=== PATIENT | male | born 1945 | race Caucasian/White ===

== ENCOUNTER 2018-03-23 08:25 | Day surgery (SDC) | payer OTHER, BC ==
[2018-03-23] MEDS ORDERED: NA CHLORIDE 0.9% 1,000 ML ONE (08:51)
[2018-03-23] MEDS ORDERED: PROPOFOL 200 MG/20 ML VIAL IV ONE (09:49)
[2018-03-23] MEDS ORDERED: FENTANYL CITR 100 MCG/2 ML ONE (09:49)
[2018-03-23] MEDS ORDERED: ONDANSETRON 4 MG/2 ML VIAL ONE (09:50)
[2018-03-23] MEDS ORDERED: LIDOCAINE 2% MPF 5 ML VIAL ONE (09:51)
[2018-03-23] MEDS ORDERED: MIDAZOLAM HCL 2 MG/2 ML INJ ONE (10:32)
[2018-03-23] MEDS: GENTAMICIN 80 MG/100 ML BAG 80 MG/100 ML BAG IV ONE ×3 (10:40→10:43)
--- NOTE | 2018-03-23 11:22 | RAD REPORT ---
EXAM DESCRIPTION: RAD - Cystography - 03/23/2018 11:10 am FINDINGS: There were 3 intraoperative KUB images obtained during fluoroscopic assisted procedure. No suspicious or unexpected finding. Fluoro time was 11 seconds.
[2018-03-23] MEDS ORDERED: TRAMADOL HCL 50 MG TAB ONE (12:31)
== END 2018-03-23 13:35 | disposition home or self-care (01) ==
LOC: OR 08:25
PROVIDERS: ATTEND Urology
PROC: 0VB08ZZ Excision of Prostate, Via Natural or Artificial Opening Endoscopic (ICD-10-PCS; principal; 2018-03-23 10:30)
DX: N40.1 Benign prostatic hyperplasia with lower urinary tract symptoms (principal); N13.4 Hydroureter; R39.12 Poor urinary stream; R31.1 Benign essential microscopic hematuria; R31.0 Gross hematuria; N39.0 Urinary tract infection, site not specified; C43.59 Malignant melanoma of other part of trunk; Z80.42 Family history of malignant neoplasm of prostate; E11.9 Type 2 diabetes mellitus without complications; E78.00 Pure hypercholesterolemia, unspecified; I10 Essential (primary) hypertension; Z79.84 Long term (current) use of oral hypoglycemic drugs; Z79.899 Other long term (current) drug therapy; Z87.891 Personal history of nicotine dependence
CPT/HCPCS: 51600; 52601; 74430; 82962 ×2; 88305; J1580; J2405; J2704; J3010; J7030; Q9967; J2250